=== PATIENT | female | born 1990 | race Caucasian/White ===

== ENCOUNTER 2018-03-19 20:04 | Emergency (ER) | payer MEDICAID ==
[~2018-03-19] VITALS: Ht 154.9 cm; Wt 56.7 kg
[2018-03-19 20:58] VITALS: BP 130/86
== END 2018-03-19 20:58 | disposition home or self-care (01) ==
LOC: ED 20:04
DX: S61.452A Open bite of left hand, initial encounter (principal); Z98.890 Other specified postprocedural states; W55.01XA Bitten by cat, initial encounter; Y93.89 Activity, other specified; Y92.89 Other specified places as the place of occurrence of the external cause; Y99.8 Other external cause status